=== PATIENT | male | born 1970 | race Native Hawaiian/Other Pacific Islander ===

== ENCOUNTER 2019-10-18 09:56 | Emergency (ER) | payer SELFPAY ==
[2019-10-18 10:08] VITALS: BP 147/99
[2019-10-18] MEDS ORDERED: SODIUM CHLORIDE 0.9% IRR 500 ML BOTTLE IR ONE (11:22)
[2019-10-18] MEDS ORDERED: IBUPROFEN 600 MG TAB PO ONE (11:22)
[2019-10-18] MEDS ORDERED: TETANUS,DIPH,PERTUSS(ACELL) VACCINE 0.5 ML SYRINGE IM ONE (11:22)
[2019-10-18] MEDS ORDERED: ceFAZolin 1 GM VIAL IM ONE (11:23)
--- NOTE | 2019-10-18 11:23 | Emergency Department Report ---
ED Laceration HPI - HPI Chief Complaint: Wound/Laceration Stated Complaint: CUT PINKY Time Seen by Provider: 10/18/19 11:19 Occurred When: Today Location: Upper Extremity Severity: mild Tetanus Status: Not up to Date Laceration Symptoms: Yes Pain, No Foreign Body Sensation, No Numbness, No Weakness Other History: Patient is a 49-year-old male who is status post ground- level mechanical fall today at home. He fell on an outstretched hand and bent his fifth digit backwards. He comes in with a dislocated finger. Abrasion to the right wrist but with full range of motion. He also has an abrasion on his chin. He states that his boot shoelace was untied and he tripped and fell. No LOC. Patient ambulatory to the ER. ED Review of Systems ROS: Stated complaint: CUT PINKY Other details as noted in HPI Comment: All other systems reviewed and negative ED Past Medical Hx - Past Medical History Previous Medical History?: No - Surgical History Past Surgical History?: No - Family History Family history: no significant - Social History Smoking Status: Never Smoker Substance Use Type: Alcohol - Medications Home Medications: Home Medications Medication Instructions Recorded Confirmed Last Taken Type cephALEXin [Keflex] 500 mg PO Q12HR #20 cap 10/18/19 Unknown Rx Laceration Physical Exam - Exam General: Vital signs noted. No distress. Alert and acting appropriately. Laceration Location: Upper Extremity Laceration Exam: Yes Normal Distal CMS, No Foreign Body, No Exposed Tendon, Vessel, or Nerve, No Tendon Injury ED Course Vital Signs 10/18/19 10:05 Temperature 98 F Pulse Rate 89 Respiratory 20 Rate Blood Pressure 147/99 O2 Sat by Pulse 98 Oximetry - Orthopedic Joint Reduction finger Consent Obtained: verbal consent Time Out Performed: Yes Side: right Joint Reduction Location: finger Analgesia: hematoma block Local Anesthetic Used: Lidocaine 2% Amount of Anesthetic Used (mls): 2 Technique Used: direct manipulation Post-Reduction Neuro Exam: intact Post-Reduction Vascular Exam: intact Post Reduction X-Ray Obtained: Yes Post Reduction X-Ray Results: reduced Splint Applied: Yes Patient Tolerated Procedure: well ED Medical Decision Making - Radiology Data Radiology results: report reviewed, image reviewed - Medical Decision Making X-ray noted to have a dislocation in the proximal joint of the fifth right digit. Finger was reduced and splinted. Post reduction film noted with relocation. Patient has a puncture wound to the palmar surface of the finger. He was given Ancef IM. His Tdap was updated. He was given medication for pain. Patient is neurovascularly intact pre-and post reduction. He has full range of motion of distal and proximal joints. Wound was cleaned and dressed. Patient being discharged home with discharge plan of care. Vital Signs 10/18/19 10:05 Temperature 98 F Pulse Rate 89 Respiratory 20 Rate Blood Pressure 147/99 O2 Sat by Pulse 98 Oximetry - Differential Diagnosis Rule out fracture Critical care attestation.: If time is entered above; I have spent that time in minutes in the direct care of this critically ill patient, excluding procedure time. ED Disposition Clinical Impression: Fall, Laceration, Abrasion, Finger dislocation Disposition: DC-01 TO HOME OR SELFCARE Is pt being admited?: No Does the pt Need Aspirin: No Condition: Stable Additional Instructions: KEEP WOUND CLEAN AND DRY WEAR SPLINT FOR 3 DAYS MOTRIN OR TYLENOL FOR PAIN MEDICATION ORDERED TODAY Prescriptions: cephALEXin [Keflex] 500 mg PO Q12HR #20 cap Referrals: ISABEL WILIKNS MD [Staff Physician] - 3-5 Days Time of Disposition: 12:09
--- NOTE | 2019-10-18 11:41 | XRay Report ---
RIGHT HAND 2 VIEWS INDICATION / CLINICAL INFORMATION: fall/pain. COMPARISON: None available. FINDINGS: There is dislocation of the proximal interphalangeal joint of the little finger with complete displac ement of the phalanges. No definite fracture is seen Signer Name: Basilio Smith MD FACJani Signed: 10/18/2019 11:37 AM Workstation Name: [id number]
[2019-10-18] MEDS ORDERED: LIDOCAINE (2%) 20 MG/1 ML VIAL 20 ML MDV INFILTRATI ONE (11:53)
[2019-10-18] MEDS ORDERED: HYDROcodone/ACETAMINOPHEN 10-325MG TAB PO ONE (11:57)
--- NOTE | 2019-10-18 12:35 | XRay Report ---
RIGHT LITTLE FINGER 2 VIEWS POSTREDUCTION INDICATION / CLINICAL INFORMATION: post reduction film r small finger. COMPARISON: 10/18/2019 at 1037 hours eastern time FINDINGS: Previously seen dislocation of the proximal interphalangeal joint of the little finger has been reduc ed. A splint has been applied. No definite fracture is seen. Signer Name: Basilio Smith MD FACR Signed: 10/18/2019 12:30 PM Workstation Name: [id number]
== END 2019-10-18 12:52 | disposition home or self-care (01) ==
LOC: ED 09:56
DX: S63.286A Dislocation of proximal interphalangeal joint of right little finger, initial encounter (principal); S00.81XA Abrasion of other part of head, initial encounter; S60.811A Abrasion of right wrist, initial encounter; W01.0XXA Fall on same level from slipping, tripping and stumbling without subsequent striking against object, initial encounter; Y93.89 Activity, other specified; Y92.009 Unspecified place in unspecified non-institutional (private) residence as the place of occurrence of the external cause; Y99.8 Other external cause status
CPT/HCPCS: 26770; 73120; 73140; 90471; 90715; 96372; 99283; J0690

== ENCOUNTER 2020-12-03 11:13 | Emergency (ER) | payer SELFPAY ==
[2020-12-03 18:31] VITALS: BP 133/77
== END 2020-12-03 18:57 | disposition home or self-care (01) ==
LOC: ED 11:13 → EDBD 11:13 → ED 18:57
DX: N41.0 Acute prostatitis (principal); D72.829 Elevated white blood cell count, unspecified; D47.3 Essential (hemorrhagic) thrombocythemia; K59.00 Constipation, unspecified; R10.84 Generalized abdominal pain; Z90.89 Acquired absence of other organs; Z98.890 Other specified postprocedural states; Z79.2 Long term (current) use of antibiotics; Z79.899 Other long term (current) drug therapy
CPT/HCPCS: 36415; 74018; 74177; 80053; 83690; 85025; 96365; 96375; 99284; J0696; J1170; J7030; Q9967

== ENCOUNTER 2020-12-06 14:01 | Emergency (ER) | payer SELFPAY ==
--- NOTE | 2020-12-06 14:36 | Event Note ---
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 Further treatment and workup at subsequent clinical providers discretion. Patient/guardian urged not to elope from the ED as their condition may be serious if not clinically assessed and managed. Initial orders include: Labs, urine
[2020-12-06 14:38] VITALS: BP 115/80
[2020-12-06 15:06] LABS: Basophils % (Auto) 0.3 % (0.0-1.8); Eosinophils # (Auto) 0.3 K/mm3 (0.0-0.4); Hematocrit 34.7 % (35.5-45.6); Hemoglobin 11.9 gm/dl (11.8-15.2); Lymphocytes # (Auto) 1.3 K/mm3 (1.2-5.4); Lymphocytes % (Auto) 9.3 % (13.4-35.0); Mean Corpuscular HGB Conc 34 % (32-34); Mean Corpuscular Volume 86 fl (84-94); Monocytes # (Auto) 0.7 K/mm3 (0.0-0.8); Monocytes % (Auto) 4.8 % (0.0-7.3); Platelet Count 773 K/mm3 (140-440); Red Blood Count 4.02 M/mm3 (3.65-5.03); Red Cell Distribution Width 14.9 % (13.2-15.2)
[2020-12-06 15:30] LABS: Alanine Aminotransferase 36 units/L (7-56); Albumin 3.1 g/dL (3.9-5); Blood Urea Nitrogen 5 mg/dL (9-20); Calcium 9.3 mg/dL (8.4-10.2); Hemolysis Index 2
[2020-12-06 15:33] LABS: BUN/Creatinine Ratio 8
--- NOTE | 2020-12-09 17:43 | Electrocardiograph Report ---
[facility] Test Date: 2020-12-06 Test Time: 14:43:21 Pat Name: CHAO METCALF Department: Room: Gender: M B2B Appointment Setter: ANGELICA : 1970 Requested By: MURRAY BARNETT Order Number: [id number] Reading MD: Stephanie Pacheco Measurements Intervals [place] Rate: 112 P: 52 MD: 142 QRS: 35 QRSD: 83 T: 15 QT: 324 QTc: 443 Interpretive Statements Sinus tachycardia Otherwise normal ECG No previous ECG available for comparison Electronically Signed On 12-09-2020 17:43:13 EDT by Stephanie Pacheco
== END 2020-12-07 10:59 | disposition left against medical advice (07) ==
LOC: ED 14:01
DX: R10.9 Unspecified abdominal pain (principal); Z53.21 Procedure and treatment not carried out due to patient leaving prior to being seen by health care provider
CPT/HCPCS: 36415; 80053; 82140; 82550; 82805; 83690; 83735; 84484; 85025; 93005